=== PATIENT | female | born 1995 | race Caucasian/White ===

== ENCOUNTER 2022-07-16 12:10 | Outpatient (CLI) | payer OTHER ==
[2022-07-16] VITALS (14 sets, daily range): BP systolic 134–183; BP diastolic 71–106
[~2022-07-16] VITALS: Ht 160 cm; Wt 131.1 kg
[2022-07-16] MEDS ORDERED: GNP250TA9 PO (13:11)
[2022-07-16] MEDS ORDERED: ECOT81TA5 PO (13:11)
[2022-07-16] MEDS ORDERED: SERT25TA85 PO (13:11)
[2022-07-16] MEDS ORDERED: ADDE15CA3 PO (13:11)
[2022-07-16] MEDS ORDERED: CALC500C16 PO (13:11)
[2022-07-16] MEDS ORDERED: PRENTAB9 PO (13:11)
[2022-07-16 13:22] LABS: HEMATOCRIT 36.8 % (36.0-47.0); HEMOGLOBIN 11.9 g/dl (12.0-15.5); MEAN CORPUSCULAR HEMOGLOBIN 28.7 pg (27.0-33.0); MEAN CORPUSCULAR HGB CONC 32.3 g/dl (32.0-36.5); MEAN CORPUSCULAR VOLUME 88.9 fl (80.0-96.0); PLATELET COUNT, AUTOMATED 226 10^3/uL (150-450); RED BLOOD COUNT 4.14 10^6/uL (4.00-5.40); WHITE BLOOD COUNT 10.4 10^3/uL (4.0-10.0)
[2022-07-16 13:45] LABS: URIC ACID 5.2 MG/DL (3.1-7.8)
[2022-07-16 13:47] LABS: LDH LACTATE DEHYDROGENASE 188 U/L (120-246)
[2022-07-16 13:48] LABS: ALT/SGPT 10 U/L (7.0-40); AST/SGOT 14 U/L (<34); BILIRUBIN,TOTAL 0.3 MG/DL (0.3-1.2); GLOMERULAR FILTRATION RATE > 60.0 (>60)
[2022-07-16] MEDS ORDERED: hydrALAZINE 20MG/ML 1ML VIAL IV ONE (14:00)
[2022-07-16 14:40] LABS: CREATININE,RANDOM URINE 25.8 MG/DL
[2022-07-16 14:45] LABS: TOTAL PROTEIN,RANDOM URINE < 6.0 MG/DL (0.0-14.0)
[2022-07-16] MEDS ORDERED: LABETALOL 200 MG TAB PO ONE (16:35)
== END 2022-07-16 16:57 | disposition home or self-care (01) ==
LOC: M LDO 12:10
PROVIDERS: ATTEND Registered Nurse
DX: O13.3 Gestational [pregnancy-induced] hypertension without significant proteinuria, third trimester (principal); Z3A.35 35 weeks gestation of pregnancy; O99.213 Obesity complicating pregnancy, third trimester; E66.9 Obesity, unspecified
CPT/HCPCS: 36415; 59025; 76815; 76819; 76820; 82247; 82565; 82570; 83615; 84156; 84450; 84460; 84550; 85027; G0463

== ENCOUNTER 2022-07-27 08:02 | Inpatient (IN) | payer OTHER ==
[~2022-07-27] VITALS: Ht 160 cm; Wt 131.6 kg
[2022-07-27] VITALS (13 sets, daily range): BP systolic 108–171; BP diastolic 59–89
[~2022-07-27 08:02] MED LIST: ADDE15CA3 PO; CALC500C16 PO; ECOT81TA5 PO; GNP250TA9 PO; PRENTAB9 PO; SERT25TA85 PO
[2022-07-27] MEDS ORDERED: LACTATED RINGER'S 1000 ML IV STA (08:22)
[2022-07-27] MEDS ORDERED: LABE1PLA IV (08:23)
[2022-07-27] MEDS ORDERED: LABE200T5 PO (08:24)
[2022-07-27] MEDS ORDERED: HOME MED LIST COMPLETE! XX SCH (08:25)
[2022-07-27] MEDS ORDERED: LIDOCAINE 1% MDV 20ML VIAL INFIL PRN (08:25)
[2022-07-27] MEDS ORDERED: OXYTOCIN DRIP 30 UNITS in IV 1 EA IV PRN ×4 (08:25)
[2022-07-27] MEDS ORDERED: TRANEXAMIC ACID INJection 1,000 MG in NS 100 ML IV PRN (08:25)
[2022-07-27] MEDS ORDERED: CARBOPROST TROMETHAMINE 250 MCG/ML AMP IM PRN (08:25)
[2022-07-27] MEDS ORDERED: **PENDING PCN ENTRY XX SCH (09:00)
[2022-07-27] MEDS ORDERED: PENICILLIN G POTASSIUM 5 MU IV 5 MU in D5W MINI-BAG PLUS 100 ML IV STA (09:30)
[2022-07-27] MEDS ORDERED: SLF 3 ML SYR IV PRN (10:15)
[2022-07-27 10:37] LABS: HEMATOCRIT 34.7 % (36.0-47.0); HEMOGLOBIN 11.2 g/dl (12.0-15.5); MEAN CORPUSCULAR HEMOGLOBIN 28.6 pg (27.0-33.0); MEAN CORPUSCULAR HGB CONC 32.3 g/dl (32.0-36.5); MEAN CORPUSCULAR VOLUME 88.5 fl (80.0-96.0); PLATELET COUNT, AUTOMATED 211 10^3/uL (150-450); RED BLOOD COUNT 3.92 10^6/uL (4.00-5.40); WHITE BLOOD COUNT 12.6 10^3/uL (4.0-10.0)
[2022-07-27 10:53] LABS: URIC ACID 5.7 MG/DL (3.1-7.8)
[2022-07-27 10:54] LABS: LDH LACTATE DEHYDROGENASE 194 U/L (120-246)
[2022-07-27 10:56] LABS: ALT/SGPT 13 U/L (7.0-40); AST/SGOT < 8 U/L (<34); BILIRUBIN,TOTAL 0.3 MG/DL (0.3-1.2); CREATININE FOR GFR 0.64 MG/DL (0.55-1.30); GLOMERULAR FILTRATION RATE > 60.0 (>60)
[2022-07-27] MEDS: miSOPROStol 50MCG 1/2 TABLET SL SCH ×3 (11:14→19:46)
[2022-07-27 11:35] LABS: CREATININE,RANDOM URINE 305.5 MG/DL; TOTAL PROTEIN,RANDOM URINE 133.7 MG/DL (0.0-14.0)
[2022-07-27] MEDS ORDERED: PEN G POT 3,000,000 UNIT/50 ML 3,000,000 UNIT in IV 1 EA IV SCH (13:30)
[2022-07-27] MEDS: SLF 3 ML SYR IV SCH ×2 (14:16→22:00)
[2022-07-27] MEDS: LR 1,000 ML IV SCH (16:25)
[2022-07-27] MEDS: LABETALOL 200 MG TAB PO SCH (20:03)
[2022-07-28] VITALS (18 sets, daily range): BP systolic 122–148; BP diastolic 59–88
[2022-07-28] MEDS: miSOPROStol 50MCG 1/2 TABLET SL SCH ×2 (00:57→05:02)
[2022-07-28] MEDS: SLF 3 ML SYR IV SCH ×3 (05:49→22:00)
[2022-07-28] MEDS: LABETALOL 200 MG TAB PO SCH ×2 (09:17→20:03)
[2022-07-28] MEDS: SERTRALINE HCL 25 MG TABLET PO SCH (09:17)
[2022-07-28] MEDS ORDERED: PROMETHAZINE 25MG/ML 1ML VIAL IV ONE (11:30)
[2022-07-28] MEDS ORDERED: BUTORPHANOL 2 MG/ML 1ML VIAL IV ONE ×2 (11:30→15:15)
[2022-07-28] MEDS ORDERED: miSOPROStol 25MCG 1/4 TABLET PO ONE ×2 (17:40→21:45)
[2022-07-28] MEDS ORDERED: OXYTOCIN DRIP 30 UNITS in IV 1 EA IV SCH (23:45)
[2022-07-29] VITALS (57 sets, daily range): BP systolic 109–177; BP diastolic 54–117
[2022-07-29] MEDS: LR 1,000 ML IV SCH ×5 (02:37→23:45)
[2022-07-29] MEDS ORDERED: PENICILLIN G POTASSIUM 5 MU IV 5 MU in D5W MINI-BAG PLUS 100 ML IV STA (03:33)
[2022-07-29] MEDS ORDERED: FENTANYL 2MCG/ML ROPIVACAINE 0.2% IN 0.9% NACL 100ML IVBAG As Ordered ONE (04:39)
[2022-07-29] MEDS ORDERED: ONDANSETRON 4MG 2ML VIAL IV PRN (04:40)
[2022-07-29] MEDS ORDERED: EPIDURAL/PCA KEYS XX PRN (04:40)
[2022-07-29] MEDS ORDERED: NALOXONE INJ 0.4MG/1ML VIAL IV PRN (04:40)
[2022-07-29] MEDS ORDERED: ePHEDrine SULFATE 25 MG/5 ML(5MG/ML) SYRINGE IVP PRN (04:40)
[2022-07-29] MEDS ORDERED: diphenhydrAMINE 50MG/ML VIAL IV PRN (04:40)
[2022-07-29] MEDS ORDERED: LR 500 ML IV PRN (04:40)
[2022-07-29] MEDS: FENTANYL/ROPIVACAINE/NACL BAG 100 ML EPIDURAL SCH ×3 (05:42→22:33)
[2022-07-29] MEDS: SLF 3 ML SYR IV SCH ×2 (06:00→19:16)
[2022-07-29] MEDS: PEN G POT 3,000,000 UNIT/50 ML 3,000,000 UNIT in IV 1 EA IV SCH ×4 (07:52→20:05)
[2022-07-29] MEDS: SERTRALINE HCL 25 MG TABLET PO SCH (08:49)
[2022-07-29] MEDS: LABETALOL 200 MG TAB PO SCH ×2 (08:49→17:42)
[2022-07-29] MEDS: ACETAMINOPHEN 500 MG TAB PO PRN (14:16)
[2022-07-29] MEDS ORDERED: LOPERAMIDE 2 MG CAPLET PO ONE (21:50)
[2022-07-29] MEDS ORDERED: ROPIvacaine 0.5% 30ML VIAL PN ONE (23:35)
[2022-07-30] VITALS (50 sets, daily range): BP systolic 117–188; BP diastolic 56–112
[2022-07-30] MEDS: PEN G POT 3,000,000 UNIT/50 ML 3,000,000 UNIT in IV 1 EA IV SCH ×3 (00:45→08:07)
[2022-07-30] MEDS: SLF 3 ML SYR IV SCH ×3 (04:42→21:44)
[2022-07-30] MEDS: LR 1,000 ML IV SCH ×5 (04:42→23:45)
[2022-07-30] MEDS: LABETALOL 200 MG TAB PO SCH ×2 (07:28→17:58)
[2022-07-30] MEDS: CALCIUM CARBONATE 500 MG CHEW U/D PO SCH ×3 (07:44→21:16)
[2022-07-30] MEDS: SERTRALINE HCL 25 MG TABLET PO SCH (08:07)
[2022-07-30] MEDS: PRENATAL VITAMINS CHEWABLE TABLET PO SCH (09:00)
[2022-07-30] MEDS ORDERED: RHOGAM 300MCG (1500IU) INJ IM SCH (09:50)
[2022-07-30] MEDS ORDERED: DOCUSATE SODIUM 100MG CAPSULE PO PRN (09:50)
[2022-07-30] MEDS ORDERED: DIBUCAINE 1% OINTMENT 30GM TOP PRN (09:50)
[2022-07-30] MEDS ORDERED: METHYLERGONOVINE MALEATE 0.2 MG TAB PO PRN (09:50)
[2022-07-30] MEDS ORDERED: OXYTOCIN DRIP 30 UNITS in IV 1 EA IV SCH (09:50)
[2022-07-30] MEDS: IBUPROFEN 800 MG TAB PO PRN ×3 (10:01→23:49)
[2022-07-30] MEDS ORDERED: hydrALAZINE 20MG/ML 1ML VIAL IV STA (10:03)
[2022-07-30] MEDS ORDERED: MAG Sulf (L&D) 4 GM/100 ML 4 GM in IV 1 EA IV ONE (10:05)
[2022-07-30] MEDS ORDERED: CALCIUM GLUCONATE 1,000 MG in D5W MINI-BAG PLUS 100 ML IV PRN (10:05)
[2022-07-30] MEDS: MAG Sulf (OBGYN) 20GM/500ML 20,000 MG in IV 1 EA IV SCH ×2 (10:45→21:16)
[2022-07-30 10:58] LABS: URIC ACID 5.5 MG/DL (3.1-7.8)
[2022-07-30 11:00] LABS: LDH LACTATE DEHYDROGENASE 190 U/L (120-246)
[2022-07-30 11:01] LABS: ALT/SGPT 12 U/L (7.0-40); AST/SGOT 16 U/L (<34); BILIRUBIN,TOTAL 0.4 MG/DL (0.3-1.2); GLOMERULAR FILTRATION RATE > 60.0 (>60)
[2022-07-30 16:55] LABS: HEMATOCRIT 32.3 % (36.0-47.0); HEMOGLOBIN 10.5 g/dl (12.0-15.5); MEAN CORPUSCULAR HEMOGLOBIN 28.9 pg (27.0-33.0); MEAN CORPUSCULAR HGB CONC 32.5 g/dl (32.0-36.5); PLATELET COUNT, AUTOMATED 214 10^3/uL (150-450); RED BLOOD COUNT 3.63 10^6/uL (4.00-5.40)
[2022-07-30] MEDS: ACETAMINOPHEN 500 MG TAB PO PRN (18:29)
[2022-07-31 02:00] VITALS: BP 170/86
[2022-07-31] MEDS: ACETAMINOPHEN 500 MG TAB PO PRN ×3 (02:12→14:36)
[2022-07-31] MEDS: LABETALOL 200 MG TAB PO SCH ×2 (05:38→17:43)
[2022-07-31 06:00] VITALS: BP 118/65
[2022-07-31] MEDS: MAG Sulf (OBGYN) 20GM/500ML 20,000 MG in IV 1 EA IV SCH (06:05)
[2022-07-31] MEDS: SLF 3 ML SYR IV SCH ×3 (06:30→21:15)
[2022-07-31 06:35] LABS: HEMATOCRIT 27.5 % (36.0-47.0); HEMOGLOBIN 8.8 g/dl (12.0-15.5); MEAN CORPUSCULAR HEMOGLOBIN 28.6 pg (27.0-33.0); MEAN CORPUSCULAR VOLUME 89.3 fl (80.0-96.0); PLATELET COUNT, AUTOMATED 160 10^3/uL (150-450); RED BLOOD COUNT 3.08 10^6/uL (4.00-5.40); WHITE BLOOD COUNT 11.4 10^3/uL (4.0-10.0)
[2022-07-31] MEDS: SERTRALINE HCL 25 MG TABLET PO SCH (08:35)
[2022-07-31] MEDS: PRENATAL VITAMINS CHEWABLE TABLET PO SCH (08:35)
[2022-07-31] MEDS: CALCIUM CARBONATE 500 MG CHEW U/D PO SCH ×3 (09:02→21:00)
[2022-07-31] MEDS: IBUPROFEN 800 MG TAB PO PRN ×2 (09:40→20:27)
[2022-07-31 10:00] VITALS: BP 133/70
[2022-07-31 15:00] VITALS: BP 148/106
[2022-07-31 15:55] VITALS: BP 146/70
[2022-07-31 22:00] VITALS: BP 144/81
[2022-08-01 02:00] VITALS: BP 137/78
[2022-08-01 06:00] VITALS: BP 167/85
[2022-08-01 06:10] VITALS: BP 146/78
[2022-08-01 06:20] VITALS: BP 146/78
[2022-08-01] MEDS: LABETALOL 200 MG TAB PO SCH (06:20)
[2022-08-01] MEDS: SLF 3 ML SYR IV SCH (06:20)
[2022-08-01 06:28] LABS: HEMATOCRIT 30.1 % (36.0-47.0); HEMOGLOBIN 9.5 g/dl (12.0-15.5); MEAN CORPUSCULAR HEMOGLOBIN 28.6 pg (27.0-33.0); MEAN CORPUSCULAR HGB CONC 31.6 g/dl (32.0-36.5); MEAN CORPUSCULAR VOLUME 90.7 fl (80.0-96.0); PLATELET COUNT, AUTOMATED 173 10^3/uL (150-450); RED BLOOD COUNT 3.32 10^6/uL (4.00-5.40); WHITE BLOOD COUNT 9.6 10^3/uL (4.0-10.0)
[2022-08-01 09:00] VITALS: BP 146/78
[2022-08-01] MEDS ORDERED: MEASLES,MUMPS,RUBELLA VACCINE INJ (MMR-II) SC.IMMUN ONE (09:00)
[2022-08-01] MEDS: CALCIUM CARBONATE 500 MG CHEW U/D PO SCH (09:00)
[2022-08-01 10:00] VITALS: BP 147/80
[2022-08-01] MEDS: PRENATAL VITAMINS CHEWABLE TABLET PO SCH (10:06)
[2022-08-01] MEDS: SERTRALINE HCL 25 MG TABLET PO SCH (10:06)
[2022-08-01] MEDS ORDERED: LABE200T5 PO (10:20)
[2022-08-01] MEDS ORDERED: IBUP80TA PO (10:20)
[2022-08-01] MEDS ORDERED: ACET-683 PO (10:20)
== END 2022-08-01 12:04 | disposition home or self-care (01) | DRG 806 ==
LOC: M LDI 08:02 → M OBS 07-30 19:02
PROVIDERS: ADMIT Advanced Practice Midwife; ATTEND Advanced Practice Midwife
PROC: 3E0P7VZ Introduction of Hormone into Female Reproductive, Via Natural or Artificial Opening (ICD-10-PCS; 2022-07-28)
PROC: 10E0XZZ Delivery of Products of Conception, External Approach (ICD-10-PCS; principal; 2022-07-30)
PROC: 0HQ9XZZ Repair Perineum Skin, External Approach (ICD-10-PCS; 2022-07-30)
DX: O13.4 Gestational [pregnancy-induced] hypertension without significant proteinuria, complicating childbirth (principal); Z37.0 Single live birth; Z68.41 Body mass index [BMI] 40.0-44.9, adult; Z3A.37 37 weeks gestation of pregnancy; O99.214 Obesity complicating childbirth; O99.824 Streptococcus B carrier state complicating childbirth; O70.0 First degree perineal laceration during delivery